=== PATIENT | female | born 1955 | race African-American/Black ===

== ENCOUNTER 2023-03-08 14:35 | Emergency (ER) | payer OTHER, BC ==
[~2023-03-08] VITALS: Ht 172.7 cm; Wt 79.4 kg
[2023-03-08 14:38] VITALS: BP 139/68; PULSE 70; RESP 17; TEMP 97.7; O2SAT 98
[2023-03-08] MEDS ORDERED: KETOROLAC 15 MG/ML VIAL IM ONE (15:25)
[2023-03-08] MEDS ORDERED: LIDOCAINE 5% 1 EA PATCH TP SCH (15:25)
[2023-03-08] MEDS ORDERED: ACETAMINOPHEN EXTRA STRENGTH 500 MG TAB PO ONE (15:25)
[2023-03-08] MEDS ORDERED: ACET-10509 PO (15:34)
[2023-03-08] MEDS ORDERED: LID5T TP (15:34)
--- NOTE | 2023-03-08 16:18 | NUR ---
Patient discharged with v/s stable. Written and verbal after care instructions given and explained. Patient alert, oriented and verbalized understanding of instructions. Ambulatory with steady gait. All questions addressed prior to discharge. ID band removed. Patient advised to follow up with PMD. Rx of LIDODERM PATCH, TYLENOL given. Patient educated on indication of medication including possible reaction and side effects. Opportunity to ask questions provided and answered.
== END 2023-03-08 16:18 | disposition home or self-care (01) ==
LOC: MED 14:35
DX: S43.402A Unspecified sprain of left shoulder joint, initial encounter (principal); G81.90 Hemiplegia, unspecified affecting unspecified side; Z86.73 Personal history of transient ischemic attack (TIA), and cerebral infarction without residual deficits; Z79.899 Other long term (current) drug therapy; W19.XXXA Unspecified fall, initial encounter; Y93.89 Activity, other specified; Y92.89 Other specified places as the place of occurrence of the external cause; Y99.8 Other external cause status
CPT/HCPCS: 73030; 96372; 99283; J1885

== ENCOUNTER 2024-04-07 21:49 | Emergency (ER) | payer OTHER, BC ==
[~2024-04-07] VITALS: Ht 165.1 cm; Wt 72.6 kg
[~2024-04-07 21:49] MED LIST: ACET500T99 PO; LID5T TP
[2024-04-07 21:52] VITALS: BP 148/67; PULSE 68; RESP 15; TEMP 97.9; O2SAT 94
--- NOTE | 2024-04-07 21:58 | NUR ---
BIBA BLS TO 2
[2024-04-07 22:30] VITALS: O2SAT 94
--- NOTE | 2024-04-07 22:31 | NUR ---
69 Y/O FEMALE BIBA FROM [facility] DUE TO SACRAL WOUNDS AND DIARRHEA. PT REPORTS 6/10 PAIN. UPON ASSESSMENT PT NOTED WITH SMALL SKIN TEARS AND WATERY STOOL. PT STATES SHE HAS "BEEN SCRATCHING". DENIES FEVER, CHILLS, N/V. PT ALERT AND ORIENTED TO PERSON, PLACE, TIME, AND SITUATION. PMHX: STROKE W/LEFT SIDED PARALYSIS, BREAST CANCER NKA
--- NOTE | 2024-04-07 22:40 | NUR ---
UPON ASSESSMENT PT DOES NOT HAVE PRESSURE INJURIES. SHE HAS SCRATCHES TO THE L INNER THIGH AND BILATERAL BUTTOCKS. PT STATES SHE HAS BEEN SCRATCHING HERSELF BECAUSE THE FACILITY SHE LIVES AT DOES NOT GIVE HER HER TREATMENTS AND SHE RAN OUT OF HER BARRIER CREAM.
[2024-04-07] MEDS: KETOROLAC 30 MG/ML VIAL IM ONE (23:35)
[2024-04-08] MEDS ORDERED: CEPH-588 PO (00:18)
[2024-04-08] MEDS ORDERED: [UNRECOGNIZED DRUG - CODE] TP (00:18)
--- NOTE | 2024-04-08 00:21 | NUR ---
Patient appears to be resting comfortably in bed. Vital Signs within normal limits. Respirations even and unlabored.
[2024-04-08] MEDS ORDERED: ZINC OXIDE 20% 60 GM TUBE TP ONE (00:50)
[2024-04-08] MEDS: Z-GUARD PASTE TP ONE (01:55)
--- NOTE | 2024-04-08 02:22 | NUR ---
CONTATCED NICOLE SANCHES SPOKE WITH AFTER HOURS CAREGIVER TO NOTIFY PT IS IN ROUTE BACK TO FACILTY
--- NOTE | 2024-04-08 02:24 | NUR ---
Patient discharged with v/s stable. Written and verbal after care instructions given and explained. Patient alert, oriented and verbalized understanding of instructions. [facility]. All questions addressed prior to discharge. Patient advised to follow up with PMD. Rx of keflex and zinc oxide given. Patient educated on indication of medication including possible reaction and side effects. Opportunity to ask questions provided and answered.
[2024-04-08 02:25] VITALS: BP 143/68; PULSE 70; RESP 16; TEMP 97.5; O2SAT 94
== END 2024-04-08 02:24 ==
LOC: MED 21:49
DX: L03.317 Cellulitis of buttock (principal); R19.7 Diarrhea, unspecified; Z86.73 Personal history of transient ischemic attack (TIA), and cerebral infarction without residual deficits; Z79.899 Other long term (current) drug therapy
CPT/HCPCS: 96372; 99283; J1885